=== PATIENT | male | born 1975 | race Caucasian/White ===

== ENCOUNTER 2025-07-27 07:38 | Outpatient (CLI) | payer BC, SELFPAY ==
--- NOTE | ~2025-07-27 | PE_ITS ---
EXAMINATION: PET_PETPSMAST_PT DATE: 07/27/2025 10:14 INDICATION: Malignant neoplasm of prostate. TECHNIQUE: 5.127 mCi of Ga-68 gozetotide was administered intravenously. Low dose computed tomography (CT) images were acquired from the base of the brain to the proximal thighs for attenuation correction and anatomic localization. Automated exposure control was employed. Dose-length product (DLP) was 1252 mGy- cm. Positron emission tomography (PET) images were acquired in the same distribution. COMPARISON: None FINDINGS: Head/neck: There are no pathologically enlarged lymph nodes. Chest: There is mild bronchiectasis in left upper lobe. No pleural effusion. The heart size is normal. No pericardial effusion. There is mild bilateral gynecomastia. Abdomen/pelvis/proximal thighs: The liver, gallbladder, spleen, pancreas, and adrenal glands are normal. There is a 10 mm cyst in right kidney. There is a 3 mm stone in left kidney. The prostate is mildly enlarged with maximum SUV of 2.8. There are bilateral inguinal hernias containing fat. There are no dilated loops of bowel. The appendix is normal. There are no pathologically enlarged lymph nodes. There is no free intraperitoneal fluid. There is no osseous malignancy. IMPRESSION: 1. Mildly enlarged prostate with maximum SUV of 2.8. No evidence of metastatic disease. Reviewed, dictated and finalized at location E.
--- OUTSIDE RECORDS SUMMARY | 2025-07-27 07:54 | XMS_ITS | Clinical Summary ---
Author Organization [facility] Address [address] [place] [address] Care Team Providers Care Welder Machine Operator Name Role Phone Alanis Peraza MD Primary Care Provider [phone] Priscila Gtz Unavailable [phone] Allergies No known active allergies Medications coenzyme Q10 100 mg capsule TAKE 1 CAPSULE DAILY 90 capsule 3 01/27/20 24 Active omega-3 fatty acids-fish oil 360-1,200 mg capsule TAKE 1 CAPSULE DAILY 90 capsule 1 08/07/20 24 Active omeprazole (PriLOSEC) 40 mg capsuleIndicati ons:Gastroesoph ageal reflux disease with esophagitis Take 1 capsule (40 mg total) by mouth daily 90 capsule 3 01/23/20 25 Active meloxicam (MOBIC) 7.5 mg tablet Take 1 tablet (7.5 mg total) by mouth 2 (two) times a day 180 tablet 1 01/23/20 25 Active hydrocortisone (Anusol-HC) 25 mg suppository Insert 1 suppository (25 mg total) into the rectum 2 (two) times a day as needed for hemorrhoids 12 suppository 1 04/20/20 25 Active Active Problems Problem Noted Date Diagnosed Date Encounter for screening colonoscopy 07/23/2025 Chronic midline low back pain without sciatica 0 01/20/2024 Bilateral hip pain 01/20/2024 Pelvic pain 01/20/2024 Abdominal lipoma 08/04/2022 Assessment & Plan (08/19/2022 10:30 AM ELECTRONIC PLOTTING SYSTEM OPERATOR): New Refer to GS Genital warts due to HPV (human papillomavirus) 08/04/2022 Assessment & Plan (08/19/2022 10:30 AM ELECTRONIC PLOTTING SYSTEM OPERATOR): Chronic Refer to Internal hemorrhoid 07/28/2021 Assessment & Plan (08/19/2022 10:28 AM ELECTRONIC PLOTTING SYSTEM OPERATOR): New Refer to dr. Mc Gastroesophageal reflux disease with esophagitis 07/28/2021 Assessment & Plan (05/06/2025 12:10 PM CDT): Assessment & Plan (02/04/2025 11:20 AM CDT): Chronic Stable Cont omeprazole Acute pain of right shoulder 07/28/2021 Increased prostate specific antigen (PSA) veloci ty 07/29/2020 Assessment & Plan (05/06/2025 12:10 PM CDT): New Refer to urology Orders: Ambulatory referral to Urology; Future Assessment & Plan (08/05/2020 2:02 AM ELECTRONIC PLOTTING SYSTEM OPERATOR): New Refer to urology Encounter for immunization 07/29/2020 Hearing loss of right ear due to cerumen impacti on 07/29/2020 Assessment & Plan (08/05/2020 2:01 AM ELECTRONIC PLOTTING SYSTEM OPERATOR): New Refer to ent Toenail avulsion, initial encounter 05/29/2020 Assessment & Plan (05/30/2020 12:29 PM CDT): Secondary to injury Order augmentin Refer to podiatry Chest pain 05/27/2020 Assessment & Plan (05/27/2020 12:51 PM CDT): Persistent Order holter monitor Order CT chest Palpitations 05/27/2020 Assessment & Plan (05/27/2020 12:51 PM CDT): New Order holter monitor Pigmented skin lesion 05/27/2020 Assessment & Plan (08/05/2020 2:01 AM ELECTRONIC PLOTTING SYSTEM OPERATOR): See procedure note scanned in Sent for pathology Assessment & Plan (05/27/2020 12:51 PM CDT): New Schedule to remove Blood in stool 05/07/2020 Overview (05/07/2020): Added automatically from request for surgery [id number] Anal fissure 05/07/2020 Overview (05/07/2020): Added automatically from request for surgery [id number] Pure hypercholesterolemia 05/22/2019 Assessment & Plan (05/06/2025 12:10 PM CDT): Orders: Comprehensive metabolic panel; Future Lipid panel; Future Assessment & Plan (08/19/2022 10:28 AM ELECTRONIC PLOTTING SYSTEM OPERATOR): Uncontrolled Chronic Cont fish oil Goal :TC<200, LDL<100, TG<150 Assessment & Plan (08/05/2020 2:01 AM ELECTRONIC PLOTTING SYSTEM OPERATOR): Chronic cont omega-3 Assessment & Plan (05/27/2020 12:50 PM CDT): Uncontrolled Get updated lipid profile Assessment & Plan (06/16/2019 12:50 PM CDT): Try to control with diet Pilonidal cyst 05/22/2019 Assessment & Plan (06/16/2019 12:51 PM CDT): Refer to [facility] adult exam 05/22/2019 Precordial pain 03/20/2019 Adult general medical exam 03/20/2019 Abdominal migraine 06/05/2014 Eosinophilic esophagitis 05/30/2013 Constipation 12/27/2012 Gastroesophageal reflux disease 12/27/2012 Assessment & Plan (08/19/2022 10:28 AM ELECTRONIC PLOTTING SYSTEM OPERATOR): Chronic Cont prilosec Assessment & Plan (05/27/2020 12:50 PM CDT): Stable Cont omeprazole Assessment & Plan (06/16/2019 12:50 PM CDT): Stable Cont prilosec Assessment & Plan (04/11/2019 10:47 AM CDT): Stable Cont prilosec 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 Resolved Problems Problem Noted Date Diagnosed Date Resolved Date Dyslipidemia 04/17/2019 05/22/2019 Encounters Date Type Department Care Team Description 07/23/2025 [facility] [address] [facility] [place] [address] [place] [address] Mami Amaya RMA PRE PROCEDURE ASSESSMENT 07/23/2025 Orders Only [facility] [address] [place] [address] [place] [address] Pb Weaver MD Encounter for screening colonoscopy (Primary Dx) 06/22/2025 1:36 PM CDT - 06/22/2025 11:59 PM CDT Hospital Encounter [facility] [address] [place] [id number] Discharge Disposition: Discharge to home or self care 06/21/2025 Telephone [facility] Medicine Gastroenterology Formerly [facility] Advanced [address] [place] [address] [place] [address] Mami Amaya RMA 06/20/2025 [facility] Floor [address] [place] [address] Elise Quiroz RMA Medical Records Request 06/19/2025 [facility] Floor [address] [place] [address] Elise Quiroz RMA MRI 06/15/2025 10:15 AM CDT Office Visit [facility] [address] [place] [address] Priscila Gtz PA Grade III hemorrhoids (Primary Dx); Hemorrhoids, unspecified hemorrhoid type; Change in bowel habits 04/26/2025 2:15 PM CDT Office Visit [facility] Family Medicine [address] [place] [address] [address] [place] [address] Alanis Peraza MD Increased prostate specific antigen (PSA) velocity (Primary Dx); Gastroesophageal reflux disease with esophagitis without hemorrhage; Pure hypercholesterolemia from Last 3 Months Immunizations Immunization Administration Dates Next Due Influenza, Quadrivalent, Spl it, Intramuscular 07/06/2017 Influenza, Quadrivalent, Spl it, Preservative Free, Intramuscular 07/29/2020 Influenza, Unspecified 06/27/2024(Deferr ed: Patient Refused),07/31/2022,06/27/2021, 019 Moderna SARS-CoV-2 Monovalen t Vaccination (12+ YRS) 01/04/2021,12/24/2020,12/04/2020 Tdap 12/03/2021 Surgical History Surgery Date Site/Laterality Comments FISTULA REPAIR COLONOSCOPY 05/29/2020 Medical History Medical History Date Comments GERD (gastroesophageal reflux disease) Hyperlipidemia Hearing loss Arthritis Brain concussion Hypertension 2019 Family History Medical History Relation Name Comments No Known Problems Brother No Known Problems Daughter 1 No Known Problems Daughter 2 Obesity Father Austin Méndez Alzheimer's disease Maternal Grandmother Grandma Heart disease Mother Leana Méndez Hyperlipidemia Mother Leanacaleb Méndez Hypertension Mother Leana Méndez Relation Name Status Comments Brother Alive Daughter 1 Alive Daughter 2 Alive Father Austin Méndez Alive Maternal Grandmother Grandma Mother Leana Méndez Alive Social History Tobacco Use Types Packs/Day Years Used Date Smoking Tobacco: Never Smokeless Tobacco: Never Tobacco Cessation:Counseling Given: Not Answered Alcohol Use Standard Drinks/Week Comments Yes 0 (1 standard drink = 0.6 oz pur e alcohol) 1 to 3 ounces weekly AUDIT-C Answer Date Recorded Q1: How often do you have a drink containing alc ohol? Monthly or less 01/20/2024 Q2: How many drinks containi ng alcohol do you have on a typical day when you are drinking? 1 or 2 01/20/2024 Frequency of Binge Drinking Not on file 12/27 PHQ-2 Answer Date Recorded PHQ-2 Total Score 0 04/26/2025 PHQ-9 Answer Date Recorded PHQ-9 Total Score 0 04/26/2025 Sex and Gender Information Value Date Recorded Sex Assigned at Not on file Legal Sex Male 9:19 AM ELECTRONIC PLOTTING SYSTEM OPERATOR Gender Identity Male 08/06/2020 11:03 AM ELECTRONIC PLOTTING SYSTEM OPERATOR Sexual Orientation Straight 03/28/2019 7: 07 PM CDT Obstetrics History Last Filed Vital Signs Vital Sign Reading Time Taken Comments Blood Pressure 138/88 06/15/2025 9:40 AM CDT Pulse 71 06/15/2025 9:40 AM CDT Temperature 36.3 C (97.4 F) 04/26/2025 2:11 PM CDT Respiratory Rate 18 01/20/2024 3:51 PM CDT Oxygen Saturation 100% 06/15/2025 9:40 AM CDT Inhaled Oxygen Concentration - - Weight 100.6 kg (221 lb 12.8 oz) 06/15/2025 9:40 AM CDT Height 195.6 cm (6' 5) 06/15/2025 9:40 AM CDT Body Mass Index 26.3 06/15/2025 9:40 AM CDT Plan of Treatment Upcoming Encounters Date Type Department Care Team (Late st Contact Info) Description 08/22/2025 2:00 PM ELECTRONIC PLOTTING SYSTEM OPERATOR Hospital Encounter [facility] [address] [place] [phone] Pb Weaver MD [address] [address] 08/22/2025 2:00 PM ELECTRONIC PLOTTING SYSTEM OPERATOR - 08/22/2025 2:30 PM ELECTRONIC PLOTTING SYSTEM OPERATOR Surgery [facility] [address] [place] [phone] Pb Weaver MD [address] [address] COLONOSCOPY Scheduled Procedures Name Priority Associated Diagnoses Date/Ti me COLONOSCOPY Encounter for screening colonoscopy 08/22/2025 2:00 PM ELECTRONIC PLOTTING SYSTEM OPERATOR Health Maintenance Due Date Last Done Comments Hepatitis C Screening 1975 Hepatitis B Screening 1994 Regular Well Visit/Exam 18-64 01/19/2025 01/20/2024, 07/28/2021 Covid-19 Vaccine ( season) 2025 01/21/2021, 01/04/2021, 12/24/2020, Additional history exists Influenza Vaccine (#1) 2025 , 06/27/2021, 07/29/2020, Additional history exists Depression Screening 04/26/2026 04/26/2025, 04/26/2025, 01/22/2025, Additional history exists Colon Cancer Screening-Colonoscopy 05/29/2030 05/29/2020, 01/02/2013 DTaP/Tdap/Td Vaccine (2 - Td or Tdap) 12/04/2031 12/03/2021 Pneumococcal vaccine <65 Aged Out No longer eligible based on patient's age to complete this topic Procedures Procedure Name Priority Date/Time Associated Diagnosis Comments MR BODY OUTSIDE REFERENCE Routine 06/22/2025 1:36 PM CDT COLONOSCOPY 05/29/2020 9:56 AM CDT from Last 3 Months or Most Recently Relevant to Health Maintenance Results * MR Body Outside Reference (06/22/2025 1:36 PM CDT) Impressions RAD_PACS_[facility] - 06/22/2025 1:36 PM CDT These images are for Reference purposes only and have not been reviewed by [facility] Radiology. There will be no report generated by a [facility] Radiologist. Narrative RAD_PACS_[facility] - 06/22/2025 1:36 PM CDT EXAMINATION: Images For Reference Purposes Only us Priscila LONDONO IMG MRI PROCEDURES Final R esult RAD_PACS_[facility] * COLONOSCOPY (05/29/2020 9:56 AM CDT) Anatomical Region Laterality Modality Other Narrative Procedure Note Pb Weaver MD - 05/29/2020 9:56 AM CDT ENDOSCOPY LAB Patient Name: Claude Méndez Procedure Date: 05/29/2020 9:56 AM Admit Type: Outpatient Room: [facility] Date of : 1975 Instrument Name: [id number] Gender: Male Note Status: Finalized Procedure: Colonoscopy Indications: Rectal bleeding, past history of anal fissure andperianal fistula Providers: Nova Weaver M.D. Referring MD: Alanis Peraza M.D. Medicines: Monitored Anesthesia Care Complications: No immediate complications. Estimated Blood Loss: Estimated blood loss: none. Procedure: Pre-Anesthesia Assessment: - Immediately prior to administration of medications,the patient was re-assessed for adequacy to receivesedatives. - The risks and benefits of the procedure and thesedation options and risks were discussed with the patient. All questions were answered and informed consent wasobtained. The benefits, risks and alternatives of the procedureand sedation were discussed and informed consent wasobtained. All questions were answered. Please refer to the signed informed consent document in the medical record. Thescope was passed under direct vision. The Colonoscope was introduced through the anus and advanced to the the terminal ileum. The colonoscopy was performed without difficulty. The patient tolerated the procedure well.The quality of the bowel preparation was good. The qualityof the bowel preparation was evaluated using the BBPS([place] Bowel Preparation Scale) with scores of: Right Colon =3, Transverse Colon = 3 and Left Colon = 3 (entire mucosa seen well with no residual staining, small fragments of stool or opaque liquid). The total BBPS score equals 9. The bowel preparation used was Miralax. Bowel prep was administered using a split dose. Findings: The terminal ileum appeared normal. The colon (entire examined portion) appeared normal. Biopsies for histology were taken with a cold forceps from the entire colon for evaluation of microscopic colitis. External internal hemorrhoids were found during retroflexion andduring perianal exam. The hemorrhoids were small. No fistula or anal fissure seen. Impression: - The examined portion of the ileum was normal. - The entire examined colon is normal. Biopsied. - External and internal hemorrhoids. Recommendation: - Await pathology results. Symptoms are likely from external hemorrhoids. Consider regular sitz baths.Topical analgesic creams containing lidocaine and steriod canbe of value if there is perianal pain. - Repeat colonoscopy at age 51 for screeningpurposes. Attending Participation: I personally performed the entire procedure. Electronically signed by Nova Weaver MD Nova Weaver M.D. 05/29/2020 10:31:08 AM Number of Addenda: 0 Note Initiated On: 05/29/2020 9:56 AM Scope In: Scope Out: Pb Weaver MD ENDOSCOPY PROCEDURES Final Result from Last 3 Months or Most Recently Relevant to Health Maintenance Insurance BLUE ACCESS OOS BLUE ACCESS OOS BLUE ACCESS OOS Advance Directives For more information, please contact: [phone] Documents on File Type Date Recorded Patient Custodian Blood Bank Expl anation ADVANCE DIRECTIVE 05/25/2012 12:00 AM EZEQUIEL R OF PERIOPERATIVE ASSISTANT FINANCIAL/MEDICAL * Full Code (Latest Code Status on File) Date Activated Date Inactivated Comments 05/29/2020 9:31 AM 05/29/2020 3:34 PM Care Teams Welder Machine Operator Relationship Specialty Start Date End Date Alanis Peraza MD PCP - General Family Medicine 03/20/19 Priscila Gtz PA [address] [place] [phone] [place] [address] Physician Residence Counselor Colon and Rectal Surgery 04/18/25
--- OUTSIDE RECORDS SUMMARY | 2025-07-27 07:54 | XMS_ITS | Clinical Summary ---
Author Organization [facility] Address [address] [place] [address] Care Team Providers Care Photovoltaic Technician Name Role Phone Unavailable Primary Care Provider Unavailabl e Source Comments [facility],non-owned Affiliates and Associated Physician Practices is amultiple site organization consisting of ambulatory clinics and hospital sitesin [place], [place], [place] and [place]. This disclosure is being madepursuant to the Care Everywhere program and may not contain all informatio navailable regarding this patient. Last updated 18.[facility] Social History Tobacco Use Types Packs/Day Years Used Date Smoking Tobacco: Never Assessed Sex and Gender Information Value Date Recorded Sex Assigned at Not on file Legal Sex Male 9:34 AM CDT Gender Identity Not on file Sexual Orientation Not on file Plan of Treatment Health Maintenance Due Date Last Done Comments COLOGUARD (AGES 45-75) - COL ON CA SCREENING 1975 COLON MONITORING 1976 COLONOSCOPY - COLON CA SCREENING 1976 CT COLONOGRAPHY - COLON CA SCREENING 1975 Colorectal Cancer Screening 1976 FIT - COLON CA SCREENING 1976 FLEX SIG - COLON CA SCREENING 1976 LIPID TESTING 1976 HIV SCREENING 01/01/1992 HEPATITIS C SCREENING 12/27/1994 DTAP/TDAP/TD VACCINES (1 - Tdap) 01/01/1996 HEPATITIS B VACCINE (1 of 3 - 19+ 3-dose series) 01/01/1996 DEPRESSION SCREENING 09/27/2024 COVID-19 VACCINE (1 - 2023-2 5 season) 2025 INFLUENZA VACCINE (#1) 2025 ZOSTER VACCINE (1 of 2) 2026 HIB VACCINE Aged Out No longer eligi ble based on patient's age to complete this topic HPV VACCINE Aged Out No longer eligi ble based on patient's age to complete this topic MENINGOCOCCAL (Group B) VACC INE SHARED DECISION-MAKING Aged Out No longer eligibl e based on patient's age to complete this topic MENINGOCOCCAL GROUPS A/C/Y/W VACCINE Aged Out No longer eligible b ased on patient's age to complete this topic PNEUMOCOCCAL VACCINE Aged Out No long er eligible based on patient's age to complete this topic Insurance [facility]
--- OUTSIDE RECORDS SUMMARY | 2025-07-27 07:54 | XMS_ITS | Encounter Summary ---
Author Organization [facility] Address [address] [facility] [place] [address] Care Team Providers Care Dog Pound Attendant Name Role Phone Unavailable Primary Care Provider Unavailabl e Encounter Details Date Type Department Care Team (Late st Contact Info) Description 04/15/2023 Lab Requisition [facility] - DermPath Lab [address] [facility] [address] [facility], [place] [phone] Eliel Levin MD [address] [place] [address] Social History Tobacco Use Types Packs/Day Years Used Date Smoking Tobacco: Never Assessed Sex and Gender Information Value Date Recorded Sex Assigned at Not on file Legal Sex Male 9:34 AM CDT Gender Identity Not on file Sexual Orientation Not on file documented as of this encounter Plan of Treatment Not on file documented as of this encounter Procedures Procedure Name Priority Date/Time Associated Diagnosis Comments DERMATOPATHOLOGY Routine 04/13/2023 12:0 0 AM CDT documented in this encounter Results * DERMATOPATHOLOGY (04/13/2023 12:00 AM CDT) Case Report Dermatopathology Report Case: [id number] Authorizing Provider: Eliel Levin MD Collected: 04/13/2023 12:00 AM Ordering Location: [facility] Derm[facility] Lab Received: 04/15/2023 09:39 AM Pathologist: Jeanne Quiroz MD Specimen: Skin, right supra brow 3:09 PM CDT DERMATOPATHOLOGY LABORATORY Final Diagnosis Specimen A. SKIN, right supra brow: BASAL CELL CARCINOMA, NODULAR TYPE (C44.319) 3:09 PM CDT DERMATOPATHOLOGY LABORATORY at 1509 CDT Clinical History Nevus vs BCC. Path#[id number] 3 3:09 PM CDT DERMATOPATHOLOGY LABORATORY Gross Description Specimen A: Received is one formalin filled container labeled with the patient's name and designated right supra brow. The specimen consists of a shave biopsy measuring 5x4x1 mm. Jar 0. 3 3:09 PM CDT DERMATOPATHOLOGY LABORATORY Microscopic Description Specimen A. SKIN, right supra brow: Within the dermis there are aggregates of basaloid cells with a high nuclear to cytoplasmic ratio and peripheral palisading. 3 3:09 PM CDT DERMATOPATHOLOGY LABORATORY Disclaimer An external and internal positive and negative controls are appropriate for the histochemical, immunohistochemical and immunofluorescence stain(s) in this case (if any), except where stated explicitly. The performance characteristics of the stain(s) cited in this report were developed and its performance characteristic determined by the Dermatopathology Laboratory at [facility], directed by Dr. Kemal Fang. These tests need not be, and therefore are not, approved by the [place] Food and Drug Administration. The tests are used for clinical purposes. Billing Codes Specimen Charges Stain Charges 73571 1 3 3:09 PM CDT DERMATOPATHOLOGY LABORATORY Embedded Images 3 3:09 PM CDT DERMATOPATHOLOGY LABORATORY Pathology/Cytolog y TISSUE SPECIMEN FROM SKIN / Unknown 04/13/2023 04/15/2023 9:39 AM CDT us Eliel Levin MD LAB - PATHOLOGY/CYTOLOGY ORDER ODELL Final Result DERMATOPATHOLOGY LABORATORY [facility] - Department of Dermatology [address] [place] [address], [facility] [phone] documented in this encounter Visit Diagnoses Not on filedocumented in this encounter
--- OUTSIDE RECORDS SUMMARY | 2025-07-27 07:54 | XMS_ITS | Clinical Summary ---
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 Active fish oil (OMEGA-3 FATTY ACID) 1000 MG Cap capsule Take 1 capsule (1,000 mg total) by mouth 2 (two) times daily. Active Coenzyme Q10 (COQ10 OR) Take 1 tablet by mouth daily. Active meloxicam (MOBIC) 7.5 MG tablet Take 1 tablet (7.5 mg total) by mouth 2 (two) times a day. Active hydrocortisone (ANUCORT-HC) [address] 1 suppository (25 mg total) rectally 2 (two) times daily as needed for Hemorrhoids. Active Active Problems Problem Noted Date Diagnosed Date Elevated PSA 07/11/2025 Encounters Date Type Department Care Team Description 07/11/2025 10:41 AM CDT - 07/11/2025 11:27 AM CDT Surgery [facility] [address] Austyn Stephens MD TRANSRECTAL ULTRASOUND FUSION-GUIDED PROSTATE BIOPSY 07/11/2025 10:18 AM CDT Anesthesia Event [facility] [address] Demario Menezes MD Jackson, Samantha Rae, FNP 07/11/2025 8:03 AM CDT - 07/11/2025 11:50 AM CDT Hospital Encounter [facility] [place] [address] Austyn Stephens MD Discharge Disposition: Home or Self Care (Routine Discharge) 07/11/2025 Travel 07/04/2025 11:31 AM CDT - 07/04/2025 11:59 PM CDT Hospital Encounter [facility] [place] [address] Austyn Stephens MD Discharge Disposition: Home or Self Care (Routine Discharge) 07/04/[address] [facility] [place] [address] Austyn Stephens MD 07/04/2025 Travel from Last 3 Months Social History Tobacco Use Types Packs/Day Years Used Date Smoking Tobacco: Never Smokeless Tobacco: Never Tobacco Cessation:Counseling Given: Not Answered Alcohol Use Standard Drinks/Week Comments Yes 5 (1 standard drink = 0.6 oz pur e alcohol) social Sex and Gender Information Value Date Recorded Sex Assigned at Male 07/04/2025 11:26 AM CDT Legal Sex Male 5:29 PM CDT Gender Identity Not on file Sexual Orientation Not on file Last Filed Vital Signs Vital Sign Reading Time Taken Comments Blood Pressure 121/79 07/11/2025 11:40 AM CDT Pulse 61 07/11/2025 11:40 AM CDT Temperature 36.3 C (97.4 F) 07/11/2025 11:40 AM CDT Respiratory Rate 16 07/11/2025 11:4 0 AM CDT Oxygen Saturation 98% 07/11/2025 11: 40 AM CDT Inhaled Oxygen Concentration - - Weight 99.7 kg (219 lb 12.8 oz) 07/11/2025 8:40 AM CDT Height 195.6 cm (6' 5) 07/11/2025 8:40 AM CDT Body Mass Index 26.06 07/11/2025 8:40 AM CDT Plan of Treatment Health Maintenance Due Date Last Done Comments Colorectal Cancer Screening Colonoscopy (10 Years) 1975 Annual Physical 01/01/1980 Hepatitis C 1994 Hepatitis B Vaccines (1 of 3 - 19+ 3-dose series) 01/01/1996 COVID-19 Vaccine (2024- season) 2025 01/21/2021, 01/04/2021, 12/24/2020, Additional history exists Influenza Adult (#1) 2025 07/31/2022, 06/27/2021, 07/29/2020, Additional history exists DTaP, Tdap and Td Vaccines (2 - Td or Tdap) 12/04/2031 12/03/2021 Hepatitis A Vaccines Aged Out No long er eligible based on patient's age to complete this topic Meningococcal B Vaccine Aged Out No l onger eligible based on patient's age to complete this topic Meningococcal Vaccine Aged Out No barron vida eligible based on patient's age to complete this topic Pneumococcal Vaccine: Pediatrics (0 to 5 Years) and At-Risk Patients (6 to 49 Years) Aged Out No longer eligible based on patient's age to complete this topic RSV Immunizations Under 20 Months Aged Out No longer eligible based on patient's age to complete this topic Procedures Procedure Name Priority Date/Time Associated Diagnosis Comments BIOPSY OF PROSTATE,NEEDLE/PUNCH 07/11/2025 10:18 AM CDT ELEVATED PROSTATE SPECIFIC ANTIGEN R97.20 Case Notes SCHED BY FAX 06/15/2025 LCS PHONE ASSESS Special Needs [facility] # [id number] PATHOLOGY Routine 07/11/2025 12:00 AM CDT PROTHROMBIN TIME, VENOUS Routine 07/04/2025 11:36 AM CDT Elevated PSA PARTIAL THROMBOPLASTIN TIME,PTT Routine 07/04/2025 11:36 AM CDT Elevated PSA BASIC METABOLIC PANEL Routine 07/04/2025 11:36 AM CDT Elevated PSA CBC W/DIFF AUTOMATED Routine 07/04/2025 11:36 AM CDT Elevated PSA URINE BACTERIA CULTURE Routine 07/04/2025 11:33 AM CDT Elevated PSA HC URINALYSIS AUTO W/O MICRO Routine 07/04/2025 11:33 AM CDT Elevated PSA from Last 3 Months Results * Pathology (07/11/2025 12:00 AM CDT) PATHOLOGY [facility] Department of Laboratory Medicine [address] [place] [id number] , extension [phone] Pathology Report Surgical Pathology Report Name: CLAUDE NEGRO Specimen #: [id number] Age: 4 1975 (Age: 49) Location: [facility] Sex: M Procedure Date: 07/11/2025 Hospital #: [id number] Date Received: 07/11/2025 Date Reported: 07/13/2025 Provider: AUSTYN STEPHENS MD Source: A: Prostate, left lateral base, needle biopsy B: Prostate, left base, needle biopsy C: Prostate, left lateral mid, needle biopsy D: Prostate, left medial mid, needle biopsy E: Prostate, left lateral apex, needle biopsy F: Prostate, left medial apex, needle biopsy G: Prostate, right lateral base, needle biopsy H: Prostate, right base, needle biopsy I: Prostate, right lateral mid, needle biopsy J: Prostate, right medial mid, needle biopsy K: Prostate, right lateral apex, needle biopsy L: Prostate, MILAN #2, needle biopsy M: Prostate, MILAN #1, needle biopsy N: Prostate, right medial apex, needle biopsy Clinical History: Elevated prostate-specific antigen FINAL DIAGNOSIS: A. Prostate, left lateral base, core biopsy: - Benign prostatic parenchyma. B. Prostate, left base, core biopsy: - Benign prostatic parenchyma. C. Prostate, left lateral mid, core biopsy: - Benign prostatic parenchyma. D. Prostate, left medial mid, core biopsy: - Benign prostatic parenchyma. E. Prostate, left lateral apex, core biopsy: - Benign prostatic parenchyma. F. Prostate, left medial apex, core biopsy: - Benign prostatic parenchyma, see comment. G. Prostate, right lateral base, core biopsy: - Acinar adenocarcinoma, grade group 3 (Tryon score 4+3=7, with 80% pattern 4) involving 80% of a single core. H. Prostate, right base, core biopsy: - Atypical small acinar proliferation. I. Prostate, right lateral mid, core biopsy: - Benign prostatic parenchyma. J. Prostate, right medial mid, core biopsy: - Benign prostatic parenchyma. K. Prostate, right lateral apex, core biopsy: - Benign prostatic parenchyma. L. Prostate, region of interest #2, core biopsies: - Benign prostatic parenchyma, see comment. M. Prostate, region of interest #2, core biopsies: - Acinar adenocarcinoma, grade group 3 (Katina score 4+3=7, with 80% pattern 4) involving 1 of 4 cores and 50% of total tissue submitted. N. Prostate, right medial apex, core biopsy: - Benign prostatic parenchyma. Diagnosis Comment: Immunohistochemical triple stain for AMACR/p63/high molecular keratin was performed on blocks F1 and L1 to evaluate slightly atypical appearing glands. These glands show intact basal cells by p63/high molecular weight keratin in keeping with benign prostatic parenchyma. No carcinoma is identified in the specimens. Gross Description: A. Received in formalin, labeled with a patient label and as left base lateral, is a needle core biopsy of white-bullock soft tissue that is 1.3 cm in greatest dimension. The specimen is entirely submitted in cassette A1. B. Received in formalin, labeled with a patient label and as left base, is a needle core biopsy of white-bullock soft tissue that is 1.7 cm in greatest dimension. The specimen is entirely submitted in cassette B1. C. Received in formalin, labeled with a patient label and as left mid lateral, is a needle core biopsy of white-bullock soft tissue that is 0.4 cm in greatest dimension. The specimen is entirely submitted in cassette C1. D. Received in formalin, labeled with a patient label and as left mid medial, is a needle core biopsy of white-bullock soft tissue that is 1.2 cm in greatest dimension. The specimen is entirely submitted in cassette D1. E. Received in formalin, labeled with a patient label and as left apex lateral, is a needle core biopsy of white-bullock soft tissue that is 0.4 cm in greatest dimension. The specimen is entirely submitted in cassette E1. F. Received in formalin, labeled with a patient label and as left apex medial, are 2 needle core biopsies of white-bullock soft tissue that are 0.2 and 0.8 cm in greatest dimension. The specimen is entirely submitted in cassette F1. G. Received in formalin, labeled with a patient label and as right base lateral, is a needle core biopsy of white-bullock soft tissue that is 1.9 cm in greatest dimension. The specimen is entirely submitted in cassette G1. H. Received in formalin, labeled with a patient label and as right base, is a needle core biopsy of white-bullock soft tissue that is 1.4 cm in greatest dimension. The specimen is entirely submitted in cassette H1. I. Received in formalin, labeled with a patient label and as right mid lateral, is a needle core biopsy of white-bullock soft tissue that is 1.9 cm in greatest dimension. The specimen is entirely submitted in cassette I1. J. Received in formalin, labeled with a patient label and as right mid medial, is a needle core biopsy of white-bullock soft tissue that is 0.6 cm in greatest dimension. The specimen is entirely submitted in cassette J1. K. Received in formalin, labeled with a patient label and as right apex lateral, is a needle core biopsy of white-bullock soft tissue that is 0.4 cm in greatest dimension. The specimen is entirely submitted in cassette K1. L. Received in formalin, labeled with a patient label and as MILAN #2, are 2 needle core biopsies of white-bullock soft tissue that are 0.4 and 0.6 cm in greatest dimension. The specimen is entirely submitted in cassette L1. M. Received in formalin, labeled with a patient label and as MILAN #1, are 4 needle core biopsies of white-bullock soft tissue ranging from 0.4 to 0.9 cm in greatest dimension. The specimen is entirely submitted in cassette M1. N. Received in formalin, labeled with a patient label and as right apex medial, is a needle core biopsy of white-bullock soft tissue that is 0.5 cm in greatest dimension. The specimen is entirely submitted in cassette N1. All immunohistochemical and histochemical tests were developed by and performed at [facility], [address] [place] [address]. All tests reported here have not been cleared or approved by the U.S. Food and Drug Administration (FDA). This laboratory is regulated under CLIA as qualified to perform high-complexity testing. These tests are used for clinical purposes. They should not be regarded as investigational or for research. Positive and negative controls show appropriate reactivity. Gross examination (when applicable), interpretation, and sign out were performed at [facility], [address] [place], [place] [address]. Electronically Signed Out NAI BLACKBURN MD [facility] TISSUE PROSTATE / Unknown 10:04 AM CDT Tissue specimen (specimen) PROSTATE / Unknown 07/11/2025 10:04 AM CDT Tissue specimen (specimen) PROSTATE / Unknown 07/11/2025 10:04 AM CDT Tissue specimen (specimen) PROSTATE / Unknown 07/11/2025 10:04 AM CDT Tissue specimen (specimen) PROSTATE / Unknown 07/11/2025 10:04 AM CDT Tissue specimen (specimen) PROSTATE / Unknown 07/11/2025 10:04 AM CDT Tissue specimen (specimen) PROSTATE / Unknown 07/11/2025 10:04 AM CDT Tissue specimen (specimen) PROSTATE / Unknown 07/11/2025 10:04 AM CDT Tissue specimen (specimen) PROSTATE / Unknown 07/11/2025 10:04 AM CDT Tissue specimen (specimen) PROSTATE / Unknown 07/11/2025 10:04 AM CDT Tissue specimen (specimen) PROSTATE / Unknown 07/11/2025 10:04 AM CDT Tissue specimen (specimen) PROSTATE / Unknown 07/11/2025 10:04 AM CDT Tissue specimen (specimen) PROSTATE / Unknown 07/11/2025 10:04 AM CDT Tissue specimen (specimen) PROSTATE / Unknown 07/11/2025 10:04 AM CDT Austyn Stephens MD PATHOLOGY/CYTOLOGY ORDERA BLES Final Result [facility] [address] [place] [address], [id number] * PTT, PARTIAL THROMBOPLASTIN TIME (07/04/2025 11:36 AM CDT) PTT 32.6 25.1 - 36.5 SEC 07/04/2025 12:35 PM CDT [facility] 07/04/2025 11:3 6 AM CDT Austyn Stephens MD LABORATORY Final Res ult Performing Organization Address City/[facility]/ZIP Co de Phone Number [facility] [address] [place] [address], [place] [phone] * PROTIME/INR, VENOUS (07/04/2025 11:36 AM CDT) PROTIME 11.8 10.2 - 12.9 SEC 07/04/2025 12:35 PM CDT [facility] INR 1.0 07/04/2025 12:35 PM CDT [facility] Comment: Recommended INR Therapeutic Goals: 2.0-3.0 Routine Therapy 2.5-3.5 Mechanical Prosthetic Valves (High Risk) 07/04/2025 11:3 6 AM CDT Austyn Stephens MD LABORATORY Final Res ult Performing Organization Address [facility] Co de Phone Number [facility] [address] [place] [address], * (ABNORMAL) BASIC METABOLIC PANEL (07/04/2025 11:36 AM CDT) GLUCOSE 102(H) 70 - 99 MG/DL 07/04/2025 12:36 PM CDT [facility] BUN 13 7 - 18 MG/DL 07/04/2025 12:36 PM CDT [facility] CREATININE S/P/B 1.00 0.7 - 1.3 MG/DL 07/04/2025 12:36 PM CDT [facility] SODIUM S/P/B 137 136 - 145 MMOL/L 07/04/2025 12:36 PM CDT [facility] POTASSIUM S/P/B 3.8 3.5 - 5.1 MMOL/L 07/04/2025 12:36 PM CDT [facility] CHLORIDE S/P/B 104 97 - 115 MMOL/L 07/04/2025 12:36 PM CDT [facility] CO2 28.9 21 - 32 MMOL/L 07/04/2025 12:36 PM CDT [facility] CALCIUM S/P/B 9.0 8.5 - 10.1 MG/DL 07/04/2025 12:36 PM CDT [facility] ANION GAP 4.1 2 - 10 MMOL/L 07/04/2025 12:36 PM CDT [facility] BUN CREATININE RATIO 13.1 6 - 26 07/04/2025 12:36 PM CDT [facility] GFR ESTIMATE >90 >90 ML/MIN/1.7 3 M2 07/04/2025 12:36 PM CDT [facility] Comment: NOTE: eGFR is not calculated for patients <18 years of age or gender unknown. This is an estimated GFR calculation using the new CKD EPI creatinine equation without race and so does not require a correction factor for race. This estimated GFR should not be used for calculating drug doses. 07/04/2025 11:3 6 AM CDT Austyn Stephens MD LABORATORY Final Res ult [facility] [address] [place] [address], [place] [phone] * CBC W/DIFF AUTOMATED (07/04/2025 11:36 AM CDT) WBC 4.78 4.5 - 11.0 x10'3/uL 07/04/2025 12:10 PM CDT [facility] RBC 5.19 4.70 - 6.10 x10'6/uL 07/04/2025 12:10 PM CDT [facility] HGB 14.2 14.0 - 18.0 G/DL 07/04/2025 12:10 PM CDT [facility] HCT 43.2 43.0 - 54.0 % 07/04/2025 12:10 PM CDT [facility] MCV 83.2 80.0 - 94.0 FL 07/04/2025 12:10 PM CDT [facility] MCH 27.4 27.0 - 31.0 PG 07/04/2025 12:10 PM CDT [facility] MCHC 32.9 32.0 - 36.0 G/DL 07/04/2025 12:10 PM CDT [facility] RDW 13.2 11.5 - 14.5 % 07/04/2025 12:10 PM CDT [facility] PLT 232 130 - 400 x10'3/uL 07/04/2025 12:10 PM CDT [facility] MPV 10.4 9.3 - 12.2 FL 07/04/2025 12:10 PM CDT [facility] DIFFERENTIAL TYPE AUTOMATED DIFFERENTIAL 07/04/2025 12:10 PM CDT [facility] NEUTROPHILS % 56.7 % 07/04/2025 12:10 PM CDT [facility] LYMPHOCYTES % 31.4 % 07/04/2025 12:10 PM CDT [facility] MONOCYTES % 9.2 % 07/04/2025 12:10 PM CDT [facility] EOSINOPHILS 1.7 % 07/04/2025 12:10 PM CDT [facility] BASOPHILS 0.8 % 07/04/2025 12:10 PM CDT [facility] IMMATURE GRANS % 0.2 % 07/04/20 12:10 PM CDT [facility] ABS. NEUTROPHILS 2.71 1.80 - 7.70 x10'3/uL 07/04/2025 12:10 PM CDT [facility] ABS. LYMPHOCYTES 1.50 1.00 - 4.80 x10'3/uL 07/04/2025 12:10 PM CDT [facility] ABS. MONOCYTES 0.44 0.30 - 0.82 x10'3/uL 07/04/2025 12:10 PM CDT [facility] ABS. EOSINOPHILS 0.08 0.04 - 0.54 x10'3/uL 07/04/2025 12:10 PM CDT [facility] ABS. BASOPHILS 0.04 0.01 - 0.08 x10'3/uL 07/04/2025 12:10 PM CDT [facility] ABS. IMMATURE GRANULOCYTES 0.01 0.00 - 0.49 x10'3/uL 07/04/2025 12:10 PM CDT [facility] 07/04/2025 11:3 6 AM CDT us Austyn Stephens MD LABORATORY Final Res ult [facility] [address] [place] [address], * URINALYSIS (07/04/2025 11:33 AM CDT) SPECIMEN TYPE URINE CLEAN CATCH 07/04/2025 11:33 AM CDT [facility] COLOR (U) COLORLESS 07/04/2025 12:06 PM CDT [facility] TRANSPARENCY CLEAR 07/04/2025 12:06 PM CDT [facility] SPECIFIC GRAVITY (U) 1.004 1.001 - 1.030 07/04/2025 12:06 PM CDT [facility] U PH 7.0 5.0 - 9.0 07/04/2025 12:06 PM CDT [facility] LEUKOCYTES (U) NEGATIVE NEGATIVE 07/04/2025 12:06 PM CDT [facility] NITRITES NEGATIVE NEGATIVE 07/04/2025 12:06 PM CDT [facility] PROTEIN RANDOM (U) NEGATIVE <30 MG/DL 07/04/2025 12:06 PM CDT [facility] GLUCOSE (U) NORMAL NORMAL MG/DL 07/04/2025 12:06 PM CDT [facility] KETONES MG/DL (U) NEGATIVE NEGATIVE MG/DL 07/04/2025 12:06 PM CDT [facility] UROBILINOGEN NORMAL NORMAL MG/DL 07/04/2025 12:06 PM CDT [facility] BILIRUBIN (U) NEGATIVE NEGATIVE MG/DL 07/04/2025 12:06 PM CDT [facility] BLOOD (U) NEGATIVE NEGATIVE 07/04/2025 12:06 PM CDT [facility] URINE SPECIMEN OBTAINED BY CLEAN CATCH PROCEDURE / Unknown 07/04/2025 11:33 AM CDT us Austyn Stephens MD URINE ORDERABLES Final Re sult [facility] [address] [place] [address], * URINE BACTERIA CULTURE (07/04/2025 11:33 AM CDT) SPEC DESCRIPTION URINE CLEAN CATCH 07/04/2025 11:33 AM CDT [facility] SPECIAL REQUESTS NO SPECIAL REQUEST 07/04/2025 11:33 AM CDT [facility] CULTURE RESULT NO GROWTH 2 DAYS 07/06/2025 7:33 AM CDT [facility] URINE SPECIMEN OBTAINED BY CLEAN CATCH PROCEDURE / Unknown 07/04/2025 11:33 AM CDT 07/04/2025 11:37 AM CDT Austyn Stephens MD MICROBIOLOGY - GENERAL OR DERABLES Final Result [facility] [address] [place] [address], from Last 3 Months Insurance [facility] Care Teams Chisel Grinder Relationship Specialty Start Date End Date None, Provider, PCP - General UNKNOWN PHYSICIAN SPECIALTY 07/04/25
--- OUTSIDE RECORDS SUMMARY | 2025-07-27 07:54 | XMS_ITS | Encounter Summary ---
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 Name Role Phone None, Provider Primary Care Provider Unavaila ble Encounter Details Date Type Department Care Team (Late st Contact Info) Description 07/04/2025 Prep for Procedure [facility] [address], [place] [id number] Keith Weinstein MD [address] [facility] [address] [place], [place] [id number] Social History Tobacco Use Types Packs/Day Years Used Date Smoking Tobacco: Never Smokeless Tobacco: Never Alcohol Use Standard Drinks/Week Comments Yes 5 [...] on file documented as of this encounter Results * PROTIME/INR, VENOUS (07/04/2025 11:36 AM CDT) PROTIME 11.8 10.2 - 12.9 SEC 07/04/2025 12:35 PM CDT [facility] INR 1.0 07/04/2025 12:35 PM CDT [facility] Comment: Recommended INR Therapeutic Goals: 2.0-3.0 Routine Therapy 2.5-3.5 Mechanical Prosthetic Valves (High Risk) 07/04/2025 11:3 6 AM CDT us Keith Weinstein MD LABORATORY Final Res ult [facility] [address] [place] [address], [place] [phone] * PTT, PARTIAL THROMBOPLASTIN TIME (07/04/2025 11:36 AM CDT) PTT 32.6 25.1 - 36.5 SEC 07/04/2025 12:35 PM CDT [facility] 07/04/2025 11:3 6 AM CDT Keith Weinstein MD LABORATORY Final Res ult Performing Organization Address City/[facility]/ZIP Co de Phone Number [facility] [address] [place] [address], [place] [phone] * (ABNORMAL) BASIC METABOLIC PANEL (07/04/2025 11:36 AM CDT) GLUCOSE 102(H) 70 - 99 MG/DL 07/04/2025 12:36 PM CDT [facility] BUN 13 7 - 18 MG/DL 07/04/2025 12:36 PM CDT [facility] CREATININE S/P/B 1.00 0.7 - 1.3 MG/DL 07/04/2025 12:36 PM CDT [facility] SODIUM S/P/B 137 136 - 145 MMOL/L 07/04/2025 12:36 PM CDT [facility] POTASSIUM S/P/B 3.8 3.5 - 5.1 MMOL/L 07/04/2025 12:36 PM CDT [facility] CHLORIDE S/P/B 104 97 - 115 MMOL/L 07/04/2025 12:36 PM CDT [facility] CO2 28.9 21 - 32 MMOL/L 07/04/2025 12:36 PM CDT [facility] CALCIUM S/P/B 9.0 8.5 - 10.1 MG/DL 07/04/2025 12:36 PM CDT [facility] ANION GAP 4.1 2 - 10 MMOL/L 07/04/2025 12:36 PM CDT [facility] BUN CREATININE RATIO 13.1 6 - 26 07/04/2025 12:36 PM CDT [facility] GFR ESTIMATE >90 >90 ML/MIN/1.7 3 M2 07/04/2025 12:36 PM CDT [facility] Comment: NOTE: eGFR is not calculated for patients <18 years of age or gender unknown. This is an estimated GFR calculation using the new CKD EPI creatinine equation without race and so does not require a correction factor for race. This estimated GFR should not be used for calculating drug doses. 07/04/2025 11:3 6 AM CDT Keith Weinstein MD LABORATORY Final Res ult [facility] [address] [place] [address], * CBC W/DIFF AUTOMATED (07/04/2025 11:36 AM CDT) WBC 4.78 4.5 - 11.0 x10'3/uL 07/04/2025 12:10 PM CDT [facility] RBC 5.19 4.70 - 6.10 x10'6/uL 07/04/2025 12:10 PM CDT [facility] HGB 14.2 14.0 - 18.0 G/DL 07/04/2025 12:10 PM CDT [facility] HCT 43.2 43.0 - 54.0 % 07/04/2025 12:10 PM CDT [facility] MCV 83.2 80.0 - 94.0 FL 07/04/2025 12:10 PM CDT [facility] MCH 27.4 27.0 - 31.0 PG 07/04/2025 12:10 PM CDT [facility] MCHC 32.9 32.0 - 36.0 G/DL 07/04/2025 12:10 PM CDT [facility] RDW 13.2 11.5 - 14.5 % 07/04/2025 12:10 PM CDT [facility] PLT 232 130 - 400 x10'3/uL 07/04/2025 12:10 PM CDT [facility] MPV 10.4 9.3 - 12.2 FL 07/04/2025 12:10 PM CDT [facility] DIFFERENTIAL TYPE AUTOMATED DIFFERENTIAL 07/04/2025 12:10 PM CDT [facility] NEUTROPHILS % 56.7 % 07/04/2025 12:10 PM CDT [facility] LYMPHOCYTES % 31.4 % 07/04/2025 12:10 PM CDT [facility] MONOCYTES % 9.2 % 07/04/2025 12:10 PM CDT [facility] EOSINOPHILS 1.7 % 07/04/2025 12:10 PM CDT [facility] BASOPHILS 0.8 % 07/04/2025 12:10 PM CDT [facility] IMMATURE GRANS % 0.2 % 07/04/20 12:10 PM CDT [facility] ABS. NEUTROPHILS 2.71 1.80 - 7.70 x10'3/uL 07/04/2025 12:10 PM CDT [facility] ABS. LYMPHOCYTES 1.50 1.00 - 4.80 x10'3/uL 07/04/2025 12:10 PM CDT [facility] ABS. MONOCYTES 0.44 0.30 - 0.82 x10'3/uL 07/04/2025 12:10 PM CDT [facility] ABS. EOSINOPHILS 0.08 0.04 - 0.54 x10'3/uL 07/04/2025 12:10 PM CDT [facility] ABS. BASOPHILS 0.04 0.01 - 0.08 x10'3/uL 07/04/2025 12:10 PM CDT [facility] ABS. IMMATURE GRANULOCYTES 0.01 0.00 - 0.49 x10'3/uL 07/04/2025 12:10 PM CDT [facility] 07/04/2025 11:3 6 AM CDT us Keith Weinstein MD LABORATORY Final Res ult [facility] [address] [place] [address], * URINE BACTERIA CULTURE (07/04/2025 11:33 AM CDT) SPEC DESCRIPTION URINE CLEAN CATCH 07/04/2025 11:33 AM CDT [facility] SPECIAL REQUESTS NO SPECIAL REQUEST 07/04/2025 11:33 AM CDT [facility] CULTURE RESULT NO GROWTH 2 DAYS 07/06/2025 7:33 AM CDT [facility] URINE SPECIMEN OBTAINED BY CLEAN CATCH PROCEDURE / Unknown 07/04/2025 11:33 AM CDT 07/04/2025 11:37 AM CDT us Keith Weinstein MD MICROBIOLOGY - GENERAL OR DERABLES Final Result [facility] [address] [place] [address], [place] [phone] * URINALYSIS (07/04/2025 11:33 AM CDT) SPECIMEN TYPE URINE CLEAN CATCH 07/04/2025 11:33 AM CDT [facility] COLOR (U) COLORLESS 07/04/2025 12:06 PM CDT [facility] TRANSPARENCY CLEAR 07/04/2025 12:06 PM CDT [facility] SPECIFIC GRAVITY (U) 1.004 1.001 - 1.030 07/04/2025 12:06 PM CDT [facility] U PH 7.0 5.0 - 9.0 07/04/2025 12:06 PM CDT [facility] LEUKOCYTES (U) NEGATIVE NEGATIVE 07/04/2025 12:06 PM CDT [facility] NITRITES NEGATIVE NEGATIVE 07/04/2025 12:06 PM CDT [facility] PROTEIN RANDOM (U) NEGATIVE <30 MG/DL 07/04/2025 12:06 PM CDT [facility] GLUCOSE (U) NORMAL NORMAL MG/DL 07/04/2025 12:06 PM CDT [facility] KETONES MG/DL (U) NEGATIVE NEGATIVE MG/DL 07/04/2025 12:06 PM CDT [facility] UROBILINOGEN NORMAL NORMAL MG/DL 07/04/2025 12:06 PM CDT [facility] BILIRUBIN (U) NEGATIVE NEGATIVE MG/DL 07/04/2025 12:06 PM CDT [facility] BLOOD (U) NEGATIVE NEGATIVE 07/04/2025 12:06 PM CDT [facility] URINE SPECIMEN OBTAINED BY CLEAN CATCH PROCEDURE / Unknown 07/04/2025 11:33 AM CDT Keith Weinstein MD URINE ORDERABLES Final Re sult [facility] [address] [place] [address], [place] [phone] documented in this encounter Visit Diagnoses Diagnosis Elevated PSA- Primary Elevated prostate specific antigen (PSA) documented in this encounter Care Teams Pilot Plant Operator Relationship Specialty Start Date End Date None, Provider, PCP - General UNKNOWN PHYSICIAN SPECIALTY 07/04/25 documented as of this encounter
== END 2025-07-27 07:39 | disposition home or self-care (01) ==
PROVIDERS: PCP Family Medicine; Visit Provider Urology
DX: N40.0 Benign prostatic hyperplasia without lower urinary tract symptoms (principal); C61 Malignant neoplasm of prostate
CPT/HCPCS: 78815; A9596